=== PATIENT | male | born 1960 | race Caucasian/White ===

== ENCOUNTER 2023-11-03 06:33 | Day surgery (SDC) | payer OTHER, SELFPAY ==
[2023-10-29 08:10] VITALS: BMI 32.0
[2023-10-29 08:52] LABS: Urine Albumin Negative (Neg - Trace); Urine Bilirubin Negative (Negative); Urine Character Clear (Clear); Urine Color Yellow; Urine Glucose 3+ (Negative); Urine Ketone Negative (Negative); Urine Leukocyte Negative (Negative); Urine Nitrite Negative (Negative); Urine Occult Blood 3+ (Negative); Urine Urobilinogen Negative (Neg - 1+)
[2023-10-29 08:53] LABS: Hematocrit 45.7 % (39.0-52.0); Hemoglobin 15.7 g/dL (13.0-18.0); Mean Corp Hgb Conc. 34.4 g/dL (33.0-37.0); Mean Corpuscular Hgb 30.4 pg (27.0-31.0); Mean Corpuscular Volume 88.4 fL (80.0-94.0); Mean Platelet Volume 9.1 fL (7.4-10.4); Platelet Count 187 10^3/uL (130-400); Red Blood Cell Count 5.17 10^6/uL (4.70-6.10); Red Cell Dist. Width 13.5 % (11.5-14.5); White Blood Cell Count 6.1 10^3/uL (4.8-10.8)
[2023-10-29 09:02] LABS: Urine Bacteria Few (Negative); Urine White Cell 0-2 /HPF (0-5)
[2023-10-29 09:36] LABS: Blood Urea Nitrogen 22 mg/dl (9-20); Calcium 9.2 mg/dl (8.4-10.2); Carbon Dioxide 28 mmol/L (22-30); Chloride 105 mmol/L (98-107); Estimated Creatinine Clearance > 125 ml/min; Glucose 135 mg/dl (70-99); Potassium 4.4 mmol/L (3.5-5.1); Sodium 139 mmol/L (135-145); eGFR > 60.00
[2023-10-29 09:54] LABS: APTT 30.3 Sec (23.4-35.0); PT 14.3 Sec (11.4-14.6)
[2023-11-03] VITALS (9 sets, daily range): BP systolic 129–150; BP diastolic 72–89; BMI 32.0
[2023-11-03 07:58] LABS: Glucose - Point of Care 133 mg/dl (70-99)
[2023-11-03] MEDS: NORMOSOL-R 1000 IV (07:59)
[2023-11-03 10:21] LABS: Glucose - Point of Care 163 mg/dl (70-99)
[2023-11-07 12:32] LABS: Stone Analysis Mass 17 mg
== END 2023-11-03 12:15 | disposition home or self-care (01) ==
LOC: SDS 06:33
PROVIDERS: ATTENDING PHYSICIAN Specialist; FAMILY PHYSICIAN Internal Medicine; OTHER PHYSICIAN Internal Medicine Cardiovascular Disease
DX: N20.2 Calculus of kidney with calculus of ureter (principal)
CPT/HCPCS: 52356; 36415; 74018; 76000; 80048; 81003; 81015; 82365; 82962; 85027; 85610; 85730; C1894; C2617